=== PATIENT | male | born 1980 | race Hispanic/Latino ===

== ENCOUNTER 2020-01-21 21:39 | Emergency (ER) | payer OTHER ==
[2020-01-21] MEDS ORDERED: SODIUM CHLORIDE 0.9% 1000ML 2,000 ML IV ONE (22:21)
[2020-01-21 22:27] LABS: BASOPHILS % (AUTO) 0.8 % (0.0-5.0); EOSINOPHILS % (AUTO) 0.9 % (0.0-8.0); LYMPHOCYTES % (AUTO) 30.5 % (21.0-51.0); MEAN CORPUSCULAR HEMOGLOBIN 28.7 pg (27.0-33.0); MEAN CORPUSCULAR VOLUME 84.5 fL (79-99); MONOCYTES % (AUTO) 8.3 % (3.0-13.0); NEUTROPHILS % (AUTO) 58.6 % (40.0-77.0); PLATELET COUNT (AUTO) 390 K/uL (130-400); RED BLOOD CELL COUNT(AUTO) 5.68 MIL/uL (4.50-6.20); RED CELL DISTRIBUTION WIDTH 12.3 % (11.0-15.5); WHITE BLOOD COUNT (AUTO) 6.7 K/uL (4.8-10.8)
[2020-01-21 22:30] LABS: ABG OXYGEN SATURATION 40.9 % (95.0-99.0); HCO3,VENOUS BLOOD GAS 16.7 (21.0-28.0); PCO2,VENOUS BLOOD GAS 39 (35-48); PH,VENOUS BLOOD GAS 7.246 (7.350-7.450)
[2020-01-21 22:40] LABS: CREATININE 1.1 mg/dL (0.5-1.5)
[2020-01-21 22:46] LABS: ALBUMIN 4.1 g/dL (3.5-5.0); BILIRUBIN,TOTAL 0.5 mg/dL (0.2-1.0); TOTAL PROTEIN, SERUM 7.4 g/dL (6.0-8.3)
[2020-01-21] MEDS ORDERED: SODIUM CHLORIDE 0.9% 1000ML 1,000 ML IV ONE (23:22)
[2020-01-21 23:37] LABS: APPEARANCE,URINE Clear (CLEAR); BILIRUBIN,URINE Negative (NEGATIVE); COLOR,URINE Yellow (YELLOW); GLUCOSE, URINE (UA) >=1000 mg/dL (NEGATIVE); KETONES,URINE >=160 mg/dL (NEGATIVE); LEUKOCYTE ESTERASE ,URINE Negative (NEGATIVE); NITRATE,URINE Negative (NEGATIVE); OCCULT BLOOD,URINE Negative (NEGATIVE); PROTEIN,URINE Negative (NEGATIVE); UROBILINOGEN,URINE 0.2 mg/dL (0.2-1.0)
[2020-01-21 23:57] LABS: BACTERIA,URINE None Seen /HPF (None Seen); RBC,URINE None Seen /HPF (0-1); SQUAMOUS EPITHELIAL CELL,UR Moderate /HPF (0-2); WBC,URINE None Seen /HPF (0-1)
[2020-01-22] MEDS ORDERED: METFORMIN HCL 500 MG TABLET ONE (00:37)
[2020-01-22 00:46] LABS: ABG OXYGEN SATURATION 43.8 % (95.0-99.0); BASE EXCESS,VENOUS BLOOD GAS -12.7 (-2.0-3.0); HCO3,VENOUS BLOOD GAS 15.1 (21.0-28.0); PCO2,VENOUS BLOOD GAS 41 (35-48); PH,VENOUS BLOOD GAS 7.182 (7.350-7.450)
[2020-01-22] MEDS ORDERED: INSULIN HUMULIN R 100 UNIT/ML 3ML ONE (01:06)
[2020-01-22 02:12] LABS: ABG BASE EXCESS -11.1 mmol/L (-2.0-3.0); ABG HCO3 16.1 mmol/L (21.0-28.0); ABG OXYGEN SATURATION 56.7 % (95.0-99.0); ABG PCO2 41 mmHg (35-48)
[2020-01-22 02:53] LABS: CREATININE 0.8 mg/dL (0.5-1.5); POTASSIUM 3.3 mmol/L (3.5-5.1)
== END 2020-01-22 03:08 | disposition home or self-care (01) ==
LOC: EDH 21:39
DX: E08.65 Diabetes mellitus due to underlying condition with hyperglycemia (principal); E86.9 Volume depletion, unspecified; Z91.11 Patient's noncompliance with dietary regimen
CPT/HCPCS: 36415 ×2; 36600 ×3; 80048; 80053; 81001; 82010; 82803 ×3; 82948 ×3; 85025; 96361; 96374; 99283; J1815; J7030 ×2